=== PATIENT | male | born 1985 | race Caucasian/White ===

== ENCOUNTER 2020-08-13 17:23 | Emergency (ER) | payer OTHER ==
[~2020-08-13] VITALS: Ht 180.3 cm; Wt 90.7 kg
[2020-08-13 17:27] VITALS: BP 136/72
--- NOTE | 2020-08-13 17:34 | NUR ---
35 Y/O MALE BIBA C/O ETOH. PATIENT WAS FOUND OUTSIDE BUSINESS CENTER APPEARING ALTERED, PATIENT STATES HE HAS HAD ABOUT 3-4 DRINKS, DENIES ANY RECREATIONAL DRUG USE. [facility] 15. AMBULATORY WITH STEADY GAIT, VSS NO PMH NKDA
[2020-08-13 18:10] VITALS: BP 136/72
--- NOTE | 2020-08-13 18:11 | NUR ---
PT ELOPED FROM FACILITY AFTER BEING MEDICALLY CLEARED BY MICHAELLE OSWALD, DID NOT SIGN DISCHARGE PAPERWORK. VSS.
== END 2020-08-13 18:12 | disposition left against medical advice (07) ==
LOC: MED 17:23
DX: F10.129 Alcohol abuse with intoxication, unspecified (principal)
CPT/HCPCS: 99283